=== PATIENT | male | born 1945 | race Caucasian/White ===

== ENCOUNTER 2016-03-11 12:39 | Outpatient (CLI) ==
--- NOTE | 2016-03-11 13:15 | DI ---
EXAM: Chest two view, frontal and lateral views. HISTORY: Shortness of breath chest pain COMPARISON: None FINDINGS: The heart size is normal. There is no pulmonary vascular congestion. The lungs are annette r. No pleural effusion or pneumothorax is seen. No acute osseous abnormality identified. There is evidence of prior cardiothoracic surgery. IMPRESSION: No acute cardiopulmonary process.
== END 2016-03-11 12:40 | disposition home or self-care (01) ==
LOC: RAD 12:39
PROVIDERS: ATTEND Family Medicine
DX: R07.9 Chest pain, unspecified (principal); I25.10 Atherosclerotic heart disease of native coronary artery without angina pectoris; E78.5 Hyperlipidemia, unspecified; R06.02 Shortness of breath